=== PATIENT | female | born 1965 ===

== ENCOUNTER 2018-01-20 09:38 | Day surgery (SDC) | payer MEDICAID ==
[2018-01-04 08:12] VITALS: BMI 25.8
[2018-01-20] MEDS ORDERED: Lidocaine/Epinephrine 1% 1:100000 10 ML IJ ONE (13:05)
[2018-01-20] MEDS ORDERED: Bupivacaine 0.25% 20 ML INJ IJ ONE (13:05)
[2018-01-20] MEDS ORDERED: ceFAZolin IV 1 gm in Dextrose 1 GM/50 ML BAG IVPB ONE (13:05)
[2018-01-20] MEDS ORDERED: HYDROmorphone 0.5 mg/0.5 ml ISec IVP PRN (13:16)
[2018-01-20] MEDS ORDERED: Midazolam 2 MG/2 ML VIAL ONE ×2 (14:13→14:41)
[2018-01-20] MEDS ORDERED: Propofol 10 mg/ml Inj (20 ML) ONE ×3 (14:13→15:06)
--- NOTE | 2018-01-20 16:07 | PCM.SURG1 ---
Surgeon's Initial Post Op Note - Surgeon's Notes Surgeon: Dr. Gonzalez Pillar Worker: Dr. Sumner PGY-4, Dr. Amador PGY-1, Cheryl MCCARTY Type of Anesthesia: IV Sedation, Local Pre-Operative Diagnosis: Distal arm intramuscular lipoma, proximal forearm intramuscular lipoma Operative Findings: 1) Distal arm intramuscular lipoma. 2) Proximal forearm intramuscular lipoma Post-Operative Diagnosis: Distal arm intramuscular lipoma, proximal forearm intramuscular lipoma Operation Performed: Excision of distal arm intramuscular lipoma, proximal forearm intramuscular lipoma Specimen/Specimens Removed: Distal arm intramuscular lipoma, proximal forearm intramuscular lipoma Estimated Blood Loss: EBL {In ML}: 30 Blood Products Given: N/A Drains Used: No Drains Post-Op Condition: Good Date of Surgery/Procedure: 01/20/18 Time of Surgery/Procedure: 16:07
[2018-01-20 16:59] VITALS: O2SAT 100
[2018-01-20 17:26] VITALS: BP 100/70; PULSE 62; RESP 18; TEMP 98
--- NOTE | 2018-01-21 03:16 | OP ---
Copied To: Ankush Gonzalez MD Attending MD: Ankush Gonzalez MD PROCEDURE DATE: 01/20/2018 PREOPERATIVE DIAGNOSES: 1. Lipoma of left forearm. 2. Lipoma of the left arm nearby elbow. POSTOPERATIVE DIAGNOSES: 1. Intramuscular lipoma of the left forearm, 5 x 4 x 3 cm size. 2. Intramuscular lipoma of the left arm, approximately 6 x 4 x 4 cm size. OPERATIONS DONE: 1. Excision of the intramuscular lipoma of the left forearm, 5 x 4 x 3 cm size. 2. Excision of the lipoma of the left arm, 6 x 4 x 4 cm size. 3. Excision of the redundant skin of the left arm, approximately 5 x 2 cm size. 4. Layered closure of the wound of the left forearm, 4 x 2 cm size. ANESTHESIA: Local anesthesia plus sedation. ESTIMATED BLOOD LOSS: Around 10 mL. DRAIN: None. PATHOLOGY: Intramuscular lipomas of the left forearm and left arm were sent for the pathology. COMPLICATIONS: None. INTRAOPERATIVE FINDINGS: The patient had approximately 5 x 4 cm intramuscular lipoma of the left forearm and 6 x 4 cm lipoma of the left arm. DESCRIPTION OF PROCEDURE: On intraoperative steps, this is a 52-year-old female who was diagnosed with lipomas of the left forearm and arm. The patient was consented for excision of the lipomas, brought to the OR, placed supine on the operating table. After induction of the sedation, the left forearm and arm were prepped and draped in the usual sterile fashion. Local anesthesia was injected and a transverse 4-cm incision was made on the left forearm. After dividing the skin and subcutaneous tissue, the fascia and muscles were vertically and lipoma was identified. The lipoma appeared to be deep into the muscles origin. The lipoma was completely excised. Proper hemostasis was achieved. The wound was closed with the muscles. The muscles were approximated with a 0 Vicryl interrupted suture, the subcu with a 3-0 Vicryl, and skin with a 4-0 Monocryl. Now, a transverse 5-cm incision was made in the left arm and after incising skin and subcutaneous tissue, the underlying fascia was divided. The muscles were also and lipoma was identified. The lipoma was completely excised, and it was sent off the table for the pathology. Proper hemostasis was achieved. The wound was closed in multiple layers, fascia with 0 Vicryl, subcu with a 3-0 Vicryl, and skin with a 4-0 Monocryl. Proper hemostasis was achieved. The wound was clean, and dry sterile dressing was applied. The patient tolerated the procedure well. Count of instrument and gauze was correct. The patient was reversed from sedation and sent to the postanesthesia care unit in stable condition. Ankush Gonzalez MD
== END 2018-01-20 17:28 | disposition home or self-care (01) ==
LOC: C.SDS 09:38
PROVIDERS: ATTEND Surgery Surgical Critical Care
DX: D17.22 Benign lipomatous neoplasm of skin and subcutaneous tissue of left arm (principal); E11.9 Type 2 diabetes mellitus without complications; I10 Essential (primary) hypertension; E03.9 Hypothyroidism, unspecified
CPT/HCPCS: 11406; 82948; 88304; J0690; J1170; J1885; J2250; J2405; J2704; J3010

== ENCOUNTER 2018-06-28 11:18 | Outpatient (CLI) | payer MEDICAID | END 2018-06-28 11:19 | disposition home or self-care (01) | LOC: C.RADH 11:18 | DX: M20.12 Hallux valgus (acquired), left foot (principal); M20.11 Hallux valgus (acquired), right foot ==

== ENCOUNTER 2018-08-30 14:12 | Outpatient (CLI) | payer MEDICAID | END 2018-08-30 14:13 | disposition home or self-care (01) | LOC: C.RADH 14:12 | DX: M25.511 Pain in right shoulder (principal) ==